=== PATIENT | male | born 1995 | race Caucasian/White ===

== ENCOUNTER 2017-06-19 12:12 | Emergency (ER) | payer BC ==
--- NOTE | 2017-06-19 12:28 | EDM.PDOC ---
ED HPI GENERAL MEDICAL PROBLEM - General Chief Complaint: Skin Complaint Stated Complaint: RASH TO THE BACK OF LEFT LEG Time Seen by Provider: 06/19/17 12:19 Source of Information: Reports: Patient History Limitations: Reports: No Limitations - History of Present Illness INITIAL COMMENTS - FREE TEXT/NARRATIVE: HISTORY AND PHYSICAL: History of present illness: Patient is a 21-year-old male who presents to the emergency room with complaints of "rash" to the left posterior thigh. Friday morning he thought he had a fever and had some chills but this resolved within the afternoon. Had felt fine until when he noticed some swelling, warmth and redness to the left posterior thigh. He denies any fever, chills, calf pain, numbness or tingling to the affected extremity. No history of MRSA or skin infections. Does not shave in that area. Has had no recent injury or trauma to the affected extremity. No groin pain, redness, swelling. No difficulty urinating or with bowels. Review of systems: As per history of present illness and below otherwise all systems reviewed and negative. Past medical history: As per history of present illness and as reviewed below otherwise noncontributory. Surgical history: As per history of present illness and as reviewed below otherwise noncontributory. Social history: No reported history of drug or alcohol abuse. Family history: As per history of present illness and as reviewed below otherwise noncontributory. Physical exam: General: Well-developed and well-nourished 21-year-old male. Alert and oriented. Nontoxic appearing and in no acute distress. HEENT: Atraumatic, normocephalic, pupils reactive, negative for conjunctival pallor or scleral icterus, mucous membranes moist, throat clear, neck supple, nontender, trachea midline. Lungs: Clear to auscultation, breath sounds equal bilaterally, chest nontender. Heart: S1S2, regular rate and rhythm Abdomen: Soft, nondistended, nontender. Negative for masses or hepatosplenomegaly. Negative for costovertebral tenderness. Pelvis: Stable nontender. Genitourinary: Deferred. Rectal: Deferred. Extremities: Atraumatic, negative for cords or calf pain. Neurovascular unremarkable. Skin: Intact, warm, dry. Localized area of erythema to the left posterior thigh , approximately size of palm. Appears consistent with cellulitis. Neuro: Awake, alert, oriented. Cranial nerves II through XII unremarkable. Cerebellum unremarkable. Motor and sensory unremarkable throughout. Exam nonfocal. Vital signs have been reviewed by me, within normal limits. The cellulitis appears to be very localized and will be well managed with oral antibiotics. Discussed lab work, he declined at this time. We did discuss monitoring for signs of improvement. Nursing staff has outlined the border with a marker. Encourage the patient to closely monitor this. Signs and symptoms were reviewed with the patient in which she should return to the emergency room. We did discuss that he does not improve with oral antibiotics he would then need IV antibiotics and possible admission. He voices understanding and is agreeable to plan of care. He denies any questions at this time. Diagnostics: [] Therapeutics: [] Impression: Cellulitis Plan: 1. Please take the antibiotic as directed. Keflex 1 tab 3 times daily, with meals. This is available for pickup at [facility] 2. Continue to monitor the cellulitis site. As we discussed, if this site gets worse, developed fever, chills or any other new/worsening symptoms please return to the emergency room. 3. Tylenol and/or ibuprofen as needed for pain management. 4. Follow-up with your primary caregiver in the next 1-2 days. Return to the ED as needed and as discussed. Definitive disposition and diagnosis as appropriate pending reevaluation and review of above. Duration: Day(s): - Related Data Allergies Allergy/AdvReac Type Severity Reaction Status Date / Time medication for pink eye Allergy Cannot Uncoded 06/19/17 12:29 Remember Home Meds: Home Meds Cephalexin [Keflex] 500 mg PO TID 10 Days #30 capsule 06/19/17 [Rx] Past Medical History HEENT History: Reports: Impaired Vision, Other (See Below) Other HEENT History: boils in sinus area Psychiatric History: Reports: None Dermatologic History: Reports: Other (See Below) Other Dermatologic History: boils - Infectious Disease History Infectious Disease History: Reports: Chicken Pox - Past Surgical History Dermatological Surgical History: Reports: Other (See Below) Social & Family History - Family History Family Medical History: Noncontributory Neurological: Reports: Cerebral Aneurysms, CVA Endocrine/Metabolic: Reports: Diabetes, type II - Tobacco Use Smoking Status *Q: Never Smoker Second Hand Smoke Exposure: No - Caffeine Use Caffeine Use: Reports: Soda - Recreational Drug Use Recreational Drug Use: No ED ROS GENERAL - Review of Systems Review Of Systems: ROS reveals no pertinent complaints other than HPI. ED EXAM, SKIN/RASH Exam: See Below (See dictation) Course - Vital Signs Last Recorded V/S: Last Vital Signs Temp 98.3 F 06/19/17 12:27 Pulse 87 06/19/17 12:27 Resp 18 06/19/17 12:27 BP 133/69 06/19/17 12:27 Pulse Ox 96 06/19/17 12:27 - Orders/Labs/Meds Orders: Active Orders 24 hr Category Date Time Status Communication Order [RC] STAT Care 06/19/17 12:35 Ordered Departure - Departure Time of Disposition: 12:37 Disposition: Home, Self-Care 01 Clinical Impression: Cellulitis - Discharge Information Prescriptions: Cephalexin [Keflex] 500 mg PO TID 10 Days #30 capsule Instructions: Cellulitis, Adult, [id number] Referrals: Jluis Rendon MD [Primary Care Provider] - Forms: ED Department Discharge Additional Instructions: My general discharge The following information is given to patients seen in the emergency department who are being discharged to home. This information is to outline your options for follow-up care. We provide all patients seen in our emergency department with a follow-up referral. The need for follow-up, as well as the timing and circumstances, are variable depending upon the specifics of your emergency department visit. If you don't have a primary care physician on staff, we will provide you with a referral. We always advise you to contact your personal physician following an emergency department visit to inform them of the circumstance of the visit and for follow-up with them and/or the need for any referrals to a consulting specialist. The emergency department will also refer you to a specialist when appropriate. This referral assures that you have the opportunity for follow-up care with a specialist. All of these measure are taken in an effort to provide you with optimal care, which includes your follow-up. Under all circumstances we always encourage you to contact your private physician who remains a resource for coordinating your care. When calling for follow-up care, please make the office aware that this follow-up is from your recent emergency room visit. If for any reason you are refused follow-up, please contact the [facility] Emergency Department at and asked to speak to the emergency department charge nurse. [facility] [address] [place] [id number] 1. Please take the antibiotic as directed. Keflex 1 tab 3 times daily, with meals. This is available for pickup at [facility] 2. Continue to monitor the cellulitis site. As we discussed, if this site gets worse, developed fever, chills or any other new/worsening symptoms please return to the emergency room. 3. Tylenol and/or ibuprofen as needed for pain management. 4. Follow-up with your primary caregiver in the next 1-2 days. Return to the ED as needed and as discussed. - My Orders Last 24 Hours: My Active Orders 06/19/17 12:35 Communication Order [RC] STAT - Assessment/Plan Last 24 Hours: My Active Orders 06/19/17 12:35 Communication Order [RC] STAT
[2017-06-19 12:58] VITALS: BP 128/76
== END 2017-06-19 12:55 | disposition home or self-care (01) ==
LOC: MW.ED 12:12
DX: L03.116 Cellulitis of left lower limb (principal)
CPT/HCPCS: 99282; 99283

== ENCOUNTER 2017-12-12 14:58 | Emergency (ER) | payer BC ==
[2017-12-12 15:18] VITALS: BP 138/96
--- NOTE | 2017-12-12 15:29 | EDM.PDOC ---
ED HPI GENERAL MEDICAL PROBLEM - General Chief Complaint: Lower Extremity Injury/Pain Stated Complaint: LT ANKLE HURTS Time Seen by Provider: 12/12/17 15:05 - History of Present Illness INITIAL COMMENTS - FREE TEXT/NARRATIVE: HISTORY AND PHYSICAL: History of present illness: The patient is a 22-year-old male with no stated medical problems who presents complaints of pain to his left ankle that has been ongoing for the last week. The patient says he does exceptionally large amount of walking with his job at [employer] and does climbing and moving and doesn't recall any specific injury but has noticed increasing amount of pain at his ankle bilaterally. He said he was on his treadmill doing some sprints and he may have landed funny but doesn't recall any specific sharpshooting pain but more of a gradual onset. He did not fall bumper hit the area and has no distal toe or foot pain no heel pain and no proximal leg knee or hip pain. He has not taken any [id number] meds or pain. On my interview and evaluation the patient is wearing gym shoes which are very worn and old and the patient says there are over 6 months old even closer to a year. Review of systems: As per history of present illness and below otherwise all systems reviewed and negative. Past medical history: As per history of present illness and as reviewed below otherwise noncontributory. Surgical history: As per history of present illness and as reviewed below otherwise noncontributory. Social history: No reported history of drug or alcohol abuse. Family history: As per history of present illness and as reviewed below otherwise noncontributory. Physical exam: General: Well-developed well-nourished man who is mildly overweight and nontoxic. HEENT related to the ED without distress. Vital signs are noted by me. HEENT: Atraumatic, normocephalic, negative for conjunctival pallor or scleral icterus, mucous membranes moist, throat clear, neck supple, nontender, trachea midline. Lungs: Clear to auscultation, breath sounds equal bilaterally, chest nontender. Heart: S1S2, regular rate and rhythm no overt murmurs Abdomen: Soft, nondistended, nontender. NABS Pelvis: Deferred Genitourinary: Deferred. Rectal: Deferred. Extremities: Atraumatic, with full range of motion of all extremities without defects or deficits. At the left ankle there is some tenderness with palpation of the ankle circumferentially but there are no palpable bony deformities no ecchymosis no erythema and no warmth and really no soft tissue swelling. The patient is very flat-footed and there is barely any arch in his foot. There is no heel tenderness with palpation and no distal metatarsal or toe tenderness defects or deformities. Neurovascular is intact. The proximal tib-fib knee and hip are also intact without tenderness. No joint itself seems stable but is difficult to fully evaluate due to the patient's discomfort. The legs are negative for cords or calf pain. Neurovascular unremarkable. Neuro: Awake, alert, oriented. Cranial nerves II through XII unremarkable. Cerebellum unremarkable. Motor and sensory unremarkable throughout. Exam nonfocal. Diagnostics: X-ray of the left ankle Therapeutics: Patient defers pain medication After my initial evaluation patient did ask for something for pain but does not want a shot. I will give him Motrin 800 mg po Cam boot Patient is aware of testing results and need for follow-up with ankle-copy center specialist. I given him referrals. I've advised using the cam boot with limited weightbearing and using [id number] nonsteroidals. Impression: Left ankle pain Definitive disposition and diagnosis as appropriate pending reevaluation and review of above. Left Ankle Pain Score (Numeric/FACES): 4 - Related Data Allergies Allergy/AdvReac Type Severity Reaction Status Date / Time medication for pink eye Allergy Burning Uncoded 12/12/17 15:19 Home Meds: Home Meds . [No Known Home Meds] 12/12/17 [History] Past Medical History HEENT History: Reports: Impaired Vision, Other (See Below) Other HEENT History: boils in sinus area Psychiatric History: Reports: None Dermatologic History: Reports: Other (See Below) Other Dermatologic History: boils - Infectious Disease History Infectious Disease History: Reports: Chicken Pox - Past Surgical History Dermatological Surgical History: Reports: Other (See Below) Social & Family History - Family History Family Medical History: Noncontributory Neurological: Reports: Cerebral Aneurysms, CVA Endocrine/Metabolic: Reports: Diabetes, type II - Caffeine Use Caffeine Use: Reports: Soda Review of Systems - Review of Systems Review Of Systems: ROS reveals no pertinent complaints other than HPI. ED EXAM, GENERAL - Physical Exam Exam: See Below (See dictation) Course - Vital Signs Last Recorded V/S: Last Vital Signs Temp 36.8 C 12/12/17 15:11 Pulse 75 12/12/17 15:11 Resp 18 12/12/17 15:11 BP 138/96 H 12/12/17 15:11 Pulse Ox 96 12/12/17 15:11 - Orders/Labs/Meds Orders: Active Orders 24 hr Category Date Time Status Ankle Min 3V Lt [CR] Stat Exams 12/12/17 15:24 Taken DME for Discharge [COMM] Stat Oth 12/12/17 16:17 Ordered Meds: Medications Discontinued Medications Generic Name Dose Route Start Last Admin Trade Name Velia PRN Reason Stop Dose Admin Ibuprofen 800 mg 12/12/17 15:58 12/12/17 16:10 Motrin PO 12/12/17 15:59 800 mg ONETIME ONE Administration Departure - Departure Time of Disposition: 16:18 Disposition: Home, Self-Care 01 Condition: Good Clinical Impression: Left ankle pain Qualifiers: Chronicity: unspecified Qualified Code(s): M25.572 - Pain in left ankle and joints of left foot - Discharge Information Referrals: PCP,None [Primary Care Provider] - Forms: ED Department Discharge Additional Instructions: The following information is given to patients seen in the emergency department who are being discharged to home. This information is to outline your options for follow-up care. We provide all patients seen in our emergency department with a follow-up referral. The need for follow-up, as well as the timing and circumstances, are variable depending upon the specifics of your emergency department visit. If you don't have a primary care physician on staff, we will provide you with a referral. We always advise you to contact your personal physician following an emergency department visit to inform them of the circumstance of the visit and for follow-up with them and/or the need for any referrals to a consulting specialist. The emergency department will also refer you to a specialist when appropriate. This referral assures that you have the opportunity for followup care with a specialist. All of these measure are taken in an effort to provide you with optimal care, which includes your followup. Under all circumstances we always encourage you to contact your private physician who remains a resource for coordinating your care. When calling for followup care, please make the office aware that this follow-up is from your recent emergency room visit. If for any reason you are refused follow-up, please contact the [facility] emergency department at and ask to speak to the emergency department charge nurse. Specialty clinic- Podiatry [address], [place] [address] Fax: [phone] Dr Samira Jaffe [address] [facility] [address] [place] [address] [facility] Specialty Care--Orthopedic clinic Professional Building [address] [place] [address] [address] [place] [address] Please call and schedule follow-up appointments for next week. Wear the cam boot you have been given and try to walk more slowly and limit ambulation as much as possible. Please ice and elevate when you can and use [id number] ibuprofen. Return to ER as needed and as discussed - My Orders Last 24 Hours: My Active Orders 12/12/17 15:24 Ankle Min 3V Lt [CR] Stat 12/12/17 16:17 DME for Discharge [COMM] Stat - Assessment/Plan Last 24 Hours: My Active Orders 12/12/17 15:24 Ankle Min 3V Lt [CR] Stat 12/12/17 16:17 DME for Discharge [COMM] Stat
[2017-12-12] MEDS ORDERED: Ibuprofen 800 MG Tab PO ONE (15:58)
--- NOTE | 2017-12-15 10:39 | CR ---
EXAM DATE: 12/12/17 PATIENT'S AGE: 22 Patient: CARTER VELASQUEZ Facility: [place], [place] Site . Site : 1995 Study: XRay Extremity Left ankle [id number]/31/2018 3:54:46 PM Ordering Physician: Stephanie Martin Final Report: INDICATION: Ankle Pain, no known injury TECHNIQUE: Ankle radiograph 3 views left COMPARISON: None FINDINGS: Bone: No acute fractures or aggressive bone lesions are identified. Joint: The ankle mortise joint and the visualized hindfoot joints are unremarkable in appearance. No significant ankle effusion is seen. Soft tissue: The Kager fat pad and the Achilles` tendon is normal in appearance. No radiopaque foreign bodies are seen. IMPRESSION: 1. No acute osseous injuries or abnormalities are noted. Dictated by: Mckinley Miller MD @ 12/12/2017 16:03:09 (Electronic Signature) Report Signed by Proxy. ARELIS
== END 2017-12-12 17:00 | disposition home or self-care (01) ==
LOC: MW.ED 14:58
DX: M25.572 Pain in left ankle and joints of left foot (principal); Z88.8 Allergy status to other drugs, medicaments and biological substances
CPT/HCPCS: 73610; 99283; A9270

== ENCOUNTER 2018-09-26 20:14 | Emergency (ER) | payer BC ==
--- NOTE | 2018-09-26 20:20 | EDM.PDOC ---
ED HPI GENERAL MEDICAL PROBLEM - General Chief Complaint: Skin Complaint Stated Complaint: BOIL ON INSIDE OF NOSE Time Seen by Provider: 09/26/18 20:17 Source of Information: Reports: Patient History Limitations: Reports: No Limitations - History of Present Illness INITIAL COMMENTS - FREE TEXT/NARRATIVE: HISTORY AND PHYSICAL: History of present illness: Patient is a 23-year-old male who presents to the emergency room with complaints of an "infection" to the inside of his right nostril. He states he has had these in the past and has used Bactroban ointment which seems to help "clear them up". He states he noticed some tenderness to the inside of his right nostril and felt that it was getting larger in size. He denies any fever, chills, injury or trauma. Review of systems: As per history of present illness and below otherwise all systems reviewed and negative. Past medical history: As per history of present illness and as reviewed below otherwise noncontributory. Surgical history: As per history of present illness and as reviewed below otherwise noncontributory. Social history: See social history for further information Family history: As per history of present illness and as reviewed below otherwise noncontributory. Physical exam: General: Well-developed and well-nourished 23-year-old male. Alert and oriented. Nontoxic appearing and in no acute distress. HEENT: Atraumatic, normocephalic, pupils equal and reactive bilaterally, negative for conjunctival pallor or scleral icterus, mucous membranes moist, folliculitis noted to the right lateral near with tenderness to palpation, nares are patent bilaterally, TMs normal bilaterally, throat clear, neck supple , nontender, trachea midline. No drooling or trismus noted. No meningeal signs. No hot potato voice noted. Lungs: Clear to auscultation, breath sounds equal bilaterally, chest nontender. Heart: S1S2, regular rate and rhythm without overt murmur Skin: SEE HEENT. Intact, warm, dry. No lesions or rashes noted. Extremities: Atraumatic, moves all extremities per self without difficulty or deficits. Neurovascular unremarkable. Neuro: Awake, alert, oriented. Cranial nerves II through XII unremarkable. Cerebellum unremarkable. Motor and sensory unremarkable throughout. Exam nonfocal. Notes: Medication education was reviewed and discussed. Supportive care measures were reviewed and discussed. Voices understanding and is agreeable to plan of care. Denies any further questions or concerns at this time. Diagnostics: None Therapeutics: None Prescription: Bactroban 2% ointment Impression: Folliculitis Plan: 1. Please use the medication as prescribed. Warm gentle heat packs as we discussed. 2. Follow-up with your primary care provider as we discussed. Return to the ED as needed and as discussed. Definitive disposition and diagnosis as appropriate pending reevaluation and review of above. Right Nare Pain Score (Numeric/FACES): 4 - Related Data Allergies Allergy/AdvReac Type Severity Reaction Status Date / Time latex Allergy Rash Verified 09/26/18 20:29 medication for pink eye Allergy Burning Uncoded 09/26/18 20:29 Home Meds: Home Meds . [No Known Home Meds] 09/26/18 [History] Past Medical History HEENT History: Reports: Impaired Vision, Other (See Below) Other HEENT History: boils in sinus area Psychiatric History: Reports: None Dermatologic History: Reports: Other (See Below) Other Dermatologic History: boils - Infectious Disease History Infectious Disease History: Reports: Chicken Pox - Past Surgical History Dermatological Surgical History: Reports: Other (See Below) Social & Family History - Family History Family Medical History: Noncontributory Neurological: Reports: Cerebral Aneurysms, CVA Endocrine/Metabolic: Reports: Diabetes, type II - Caffeine Use Caffeine Use: Reports: Soda Caffeine Use Comment: 6- 24 mL btls/day ED ROS GENERAL - Review of Systems Review Of Systems: ROS reveals no pertinent complaints other than HPI. ED EXAM, SKIN/RASH Exam: See Below (See dictation) Course - Vital Signs Last Recorded V/S: Last Vital Signs Temp 97.0 F 09/26/18 20:26 Pulse 77 09/26/18 20:26 Resp 18 09/26/18 20:26 BP 144/87 H 09/26/18 20:26 Pulse Ox 96 09/26/18 20:26 Departure - Departure Time of Disposition: 20:34 Disposition: Home, Self-Care 01 Clinical Impression: Folliculitis - Discharge Information Instructions: Folliculitis Referrals: PCP,None [Primary Care Provider] - Forms: ED Department Discharge Additional Instructions: The following information is given to patients seen in the emergency department who are being discharged to home. This information is to outline your options for follow-up care. We provide all patients seen in our emergency department with a follow-up referral. The need for follow-up, as well as the timing and circumstances, are variable depending upon the specifics of your emergency department visit. If you don't have a primary care physician on staff, we will provide you with a referral. We always advise you to contact your personal physician following an emergency department visit to inform them of the circumstance of the visit and for follow-up with them and/or the need for any referrals to a consulting specialist. The emergency department will also refer you to a specialist when appropriate. This referral assures that you have the opportunity for follow-up care with a specialist. All of these measure are taken in an effort to provide you with optimal care, which includes your follow-up. Under all circumstances we always encourage you to contact your private physician who remains a resource for coordinating your care. When calling for follow-up care, please make the office aware that this follow-up is from your recent emergency room visit. If for any reason you are refused follow-up, please contact the [facility] Emergency Department at and asked to speak to the emergency department charge nurse. [facility] [address] [place] [address] [id number] [address] [id number] 1. Please use the medication as prescribed. Warm gentle heat packs as we discussed. 2. Follow-up with your primary care provider as we discussed. Return to the ED as needed and as discussed.
[2018-09-26 21:06] VITALS: BP 146/92
== END 2018-09-26 20:54 | disposition home or self-care (01) ==
LOC: MW.ED 20:14
DX: L73.9 Follicular disorder, unspecified (principal); Z91.040 Latex allergy status
CPT/HCPCS: 99282

== ENCOUNTER 2019-03-04 09:32 | Emergency (ER) | payer BC ==
[2019-03-04] MEDS ORDERED: Sodium Chloride 0.9% 1,000 ML IV ONE (09:45)
--- NOTE | 2019-03-04 09:47 | EDM.PDOC ---
ED HPI GENERAL MEDICAL PROBLEM - General Chief Complaint: Gastrointestinal Problem Stated Complaint: ABD PAIN Time Seen by Provider: 03/04/19 09:42 - History of Present Illness INITIAL COMMENTS - FREE TEXT/NARRATIVE: HISTORY AND PHYSICAL: History of present illness: Patient's 23-year-old white male no significant past medical history presents with concern of diarrhea 5 days with some crampy discomfort he denies fever chills nausea vomiting is been no recent travel he's had no sick contacts. Review of systems: As per history of present illness and below otherwise all systems reviewed and negative. Past medical history: As per history of present illness and as reviewed below otherwise noncontributory. Surgical history: As per history of present illness and as reviewed below otherwise noncontributory. Social history: No reported history of drug or alcohol abuse. Family history: As per history of present illness and as reviewed below otherwise noncontributory. Physical exam: HEENT: Atraumatic, normocephalic, pupils reactive, negative for conjunctival pallor or scleral icterus, mucous membranes moist, throat clear, neck supple, nontender, trachea midline. Lungs: Clear to auscultation, breath sounds equal bilaterally, chest nontender. Heart: S1S2, regular, negative for clicks, rubs, or JVD. Abdomen: Soft, nondistended, nontender. Negative for masses or hepatosplenomegaly. Negative for costovertebral tenderness. Pelvis: Stable nontender. Genitourinary: Deferred. Rectal: Deferred. Extremities: Atraumatic, negative for cords or calf pain. Neurovascular unremarkable. Neuro: Awake, alert, oriented. Cranial nerves II through XII unremarkable. Cerebellum unremarkable. Motor and sensory unremarkable throughout. Exam nonfocal. Diagnostics: CBC CMP UA stool for C&S O&P and C. difficile Therapeutics: Saline 1 L bolus Impression: #1 diarrhea Definitive disposition and diagnosis as appropriate pending reevaluation and review of above. Abdomen Pain Score (Numeric/FACES): 3 - Related Data Allergies Allergy/AdvReac Type Severity Reaction Status Date / Time latex Allergy Rash Verified 03/04/19 09:39 medication for pink eye Allergy Burning Uncoded 03/04/19 09:39 Home Meds: Home Meds . [No Known Home Meds] 09/26/18 [History] Past Medical History HEENT History: Reports: Impaired Vision, Other (See Below) Other HEENT History: boils in sinus area Cardiovascular History: Reports: None Psychiatric History: Reports: None Dermatologic History: Reports: Other (See Below) Other Dermatologic History: boils - Infectious Disease History Infectious Disease History: Reports: None - Past Surgical History Dermatological Surgical History: Reports: Other (See Below) Social & Family History - Family History Family Medical History: Noncontributory Neurological: Reports: Cerebral Aneurysms, CVA Endocrine/Metabolic: Reports: Diabetes, type II - Tobacco Use Smoking Status *Q: Never Smoker - Caffeine Use Caffeine Use: Reports: Soda Caffeine Use Comment: 6- 24 mL btls/day - Recreational Drug Use Recreational Drug Use: No ED ROS GENERAL - Review of Systems Review Of Systems: Comprehensive ROS is negative, except as noted in HPI. ED EXAM, GENERAL - Physical Exam Exam: See Below (dictation) Course - Vital Signs Last Recorded V/S: Last Vital Signs Temp 36.3 C 03/04/19 09:39 Pulse 93 03/04/19 09:39 Resp 17 03/04/19 09:39 BP 165/75 H 03/04/19 09:39 Pulse Ox 97 03/04/19 09:39 - Orders/Labs/Meds Orders: Active Orders 24 hr Category Date Time Status CULTURE STOOL + CAMPY+SHIGATOX [RM] Stat Lab 03/04/19 09:46 Results Labs: Laboratory Tests 03/04/19 03/04/19 03/04/19 Range/Units 09:46 10:03 10:03 WBC 8.23 (4.0-11.0) K/uL RBC 5.42 (4.50-5.90) M/uL Hgb 15.0 (13.0-17.0) g/dL Hct 43.6 (38.0-50.0) % MCV 80.4 (80.0-98.0) fL MCH 27.7 (27.0-32.0) pg MCHC 34.4 (31.0-37.0) g/dL RDW Std Deviation 36.7 (28.0-62.0) fl RDW Coeff of Smita 13 (11.0-15.0) % Plt Count 374 (150-400) K/uL MPV 9.90 (7.40-12.00) fL Neut % (Auto) 59.9 (48.0-80.0) % Lymph % (Auto) 28.6 (16.0-40.0) % [place] % (Auto) 8.9 (0.0-15.0) % Eos % (Auto) 2.2 (0.0-7.0) % Baso % (Auto) 0.4 (0.0-1.5) % Neut # (Auto) 4.9 (1.4-5.7) K/uL Lymph # (Auto) 2.4 (0.6-2.4) K/uL [place] # (Auto) 0.7 (0.0-0.8) K/uL Eos # (Auto) 0.2 (0.0-0.7) K/uL Baso # (Auto) 0.0 (0.0-0.1) K/uL Sodium 136 (136-148) mmol/L Potassium 4.2 (3.5-5.1) mmol/L Chloride 101 (98-107) mmol/L Carbon Dioxide 26.5 (21.0-32.0) mmol/L BUN 12 (7.0-18.0) mg/dL Creatinine 0.8 (0.8-1.3) mg/dL Est Cr Clr Drug Dosing 185.66 mL/min Estimated GFR (MDRD) > 60.0 ml/min Glucose 86 (74-106) mg/dL Calcium 9.1 (8.5-10.1) mg/dL Total Bilirubin 0.3 (0.2-1.0) mg/dL AST 21 (15-37) IU/L ALT 39 (14-63) IU/L Alkaline Phosphatase 60 (46-116) U/L Total Protein 8.6 H (6.4-8.2) g/dL Albumin 4.0 (3.4-5.0) g/dL Globulin 4.6 H (2.6-4.0) g/dL Albumin/Globulin Ratio 0.9 (0.9-1.6) Urine Color YELLOW Urine Appearance CLEAR Urine pH 6.0 (5.0-8.0) Ur Specific [place] 1.020 (1.001-1.035) Urine Protein NEGATIVE (NEGATIVE) mg/dL Urine Glucose (UA) NEGATIVE (NEGATIVE) mg/dL Urine Ketones NEGATIVE (NEGATIVE) mg/dL Urine Occult Blood NEGATIVE (NEGATIVE) Urine Nitrite NEGATIVE (NEGATIVE) Urine Bilirubin NEGATIVE (NEGATIVE) Urine Urobilinogen 0.2 (<2.0) EU/dL Ur Leukocyte Esterase NEGATIVE (NEGATIVE) Meds: Medications Discontinued Medications Generic Name Dose Route Start Last Admin Trade Name Velia PRN Reason Stop Dose Admin Sodium Chloride 1,000 mls @ 999 mls/hr 03/04/19 09:45 03/04/19 09:59 Normal Saline IV 03/04/19 10:45 999 mls/hr STAT ONE Administration Departure - Departure Time of Disposition: 12:41 Disposition: Home, Self-Care 01 Condition: Good Clinical Impression: Diarrhea - Discharge Information Referrals: Boris Gonzalez MD [Primary Care Provider] - Forms: ED Department Discharge Additional Instructions: The following information is given to patients seen in the emergency department who are being discharged to home. This information is to outline your options for follow-up care. We provide all patients seen in our emergency department with a follow-up referral. The need for follow-up, as well as the timing and circumstances, are variable depending upon the specifics of your emergency department visit. If you don't have a primary care physician on staff, we will provide you with a referral. We always advise you to contact your personal physician following an emergency department visit to inform them of the circumstance of the visit and for follow-up with them and/or the need for any referrals to a consulting specialist. The emergency department will also refer you to a specialist when appropriate. This referral assures that you have the opportunity for followup care with a specialist. All of these measure are taken in an effort to provide you with optimal care, which includes your followup. Under all circumstances we always encourage you to contact your private physician who remains a resource for coordinating your care. When calling for followup care, please make the office aware that this follow-up is from your recent emergency room visit. If for any reason you are refused follow-up, please contact the [facility] emergency department at and asked to speak to the emergency department charge nurse. Avoid dairy products 72 hours push fluids clear liquids as directed follow private medical doctor as needed discussed and return as needed as discussed - My Orders Last 24 Hours: My Active Orders 03/04/19 09:46 CULTURE STOOL + CAMPY+SHIGATOX [RM] Stat - Assessment/Plan Last 24 Hours: My Active Orders 03/04/19 09:46 CULTURE STOOL + CAMPY+SHIGATOX [RM] Stat
[2019-03-04 10:55] LABS: BLOOD UREA NITROGEN,BUN 12 mg/dL (7.0-18.0); CARBON DIOXIDE,CO2 26.5 mmol/L (21.0-32.0); CHLORIDE,CL 101 mmol/L (98-107); GLUCOSE RANDOM 86 mg/dL (74-106); POTASSIUM,K 4.2 mmol/L (3.5-5.1); SODIUM,NA 136 mmol/L (136-148)
[2019-03-04 12:59] VITALS: BP 145/87; PULSE 72
== END 2019-03-04 12:45 | disposition home or self-care (01) ==
LOC: MW.ED 09:32
DX: R19.7 Diarrhea, unspecified (principal); Z91.040 Latex allergy status; Z88.8 Allergy status to other drugs, medicaments and biological substances
CPT/HCPCS: 36415; 80053; 81003; 85025; 87046; 87324; 87899; 99284; J7040

== ENCOUNTER 2020-03-23 04:48 | Emergency (ER) | payer OTHER, BC ==
--- NOTE | 2020-03-23 05:38 | CR ---
Indication: Knee pain Technique: Three views Comparison: None Findings: Bones: Alignment is normal. No fractures or bone lesions. Joint spaces: Unremarkable. Soft tissues: Mild anterior soft tissue swelling. Dictated by Steffen Marquez MD @ Mar 23 2020 5:35AM Signed by Dr. Steffen Marquez @ Mar 23 2020 5:37AM
--- NOTE | 2020-03-23 05:53 | CR ---
Indication: Pain Technique: Three views Comparison: None Findings: Bones: Alignment is normal. No fractures or bone lesions. Joint spaces: Unremarkable. Soft tissues: Moderate soft tissue swelling Dictated by Steffen Marquez MD @ Mar 23 2020 5:50AM Signed by Dr. Steffen Marquez @ Mar 23 2020 5:52AM
--- NOTE | 2020-03-23 05:59 | EDM.PDOC ---
ED HPI GENERAL MEDICAL PROBLEM - General Chief Complaint: Lower Extremity Injury/Pain Stated Complaint: RT ANKLE HURTS Time Seen by Provider: 03/23/20 05:53 Source of Information: Reports: Patient History Limitations: Reports: No Limitations - History of Present Illness INITIAL COMMENTS - FREE TEXT/NARRATIVE: 24-year-old male presents with right ankle pain after spraining his ankle getting out of his truck just prior to arrival. He landed on his left knee and complains of left knee pain. His pain to his right ankle is constant, exacerbated with range of motion and weightbearing, constant, nonradiating, sharp mild in severity. ROS: A 10-point review of systems, other than pertinent positives and negatives as stated per HPI, is otherwise negative Past medical history: No additional pertinent history Past Surgical history: No additional pertinent history Social history: No additional pertinent history Family history: No additional pertinent history PHYSICAL EXAM General: AOx4, GCS = 15, No distress HEENT: dry mucous membrane Neck: supple, no meningismus, no Kernig or Brudzinski Cardiac: S1S2 RRR Respiratory: CTAB, no crackles or rales, no wheezing Abdomen: Soft, nontender, no rebound or guarding, nondistended, no pulsatile mass. Back: nontender Musculoskeletal: NVI distally, mild tenderness to left patella and right ankle medial malleolus. No deformity Neuro: No focal deficits, CN 2 - 12 WNL. right ankle Pain Score (Numeric/FACES): 6 - Related Data Allergies Allergy/AdvReac Type Severity Reaction Status Date / Time latex Allergy Rash Verified 03/23/20 04:57 medication for pink eye Allergy Burning Uncoded 03/23/20 04:57 Home Meds: Home Meds Naproxen [Naprosyn] 500 mg PO Q12HR #30 tab 03/23/20 [Rx] Past Medical History HEENT History: Reports: Impaired Vision, Other (See Below) Other HEENT History: boils in sinus area Cardiovascular History: Reports: None Respiratory History: Reports: None Gastrointestinal History: Reports: None Genitourinary History: Reports: None Musculoskeletal History: Reports: None Neurological History: Reports: None Psychiatric History: Reports: None Endocrine/Metabolic History: Reports: None Insulin Pump Model and Operations Welder: None Hematologic History: Reports: None Immunologic History: Reports: None Oncologic (Cancer) History: Reports: None Dermatologic History: Reports: Other (See Below) Other Dermatologic History: boils - Infectious Disease History Infectious Disease History: Reports: Chicken Pox - Past Surgical History Head Surgeries/Procedures: Reports: None Dermatological Surgical History: Reports: Other (See Below) Social & Family History - Family History Family Medical History: No Pertinent Family History Neurological: Reports: Cerebral Aneurysms, CVA Endocrine/Metabolic: Reports: Diabetes, type II - Tobacco Use Tobacco Use Status *Q: Never Tobacco User - Caffeine Use Caffeine Use: Reports: Soda Caffeine Use Comment: 6- 24 mL btls/day - Recreational Drug Use Recreational Drug Use: No Review of Systems - Review of Systems Review Of Systems: See Below (see dictation) ED EXAM, GENERAL - Physical Exam Exam: See Below (see dictation) ED TRAUMA EXTREMITY PROCEDURES - Splinting Right Lower Extremity Splint Site: right ankle Pre-Procedure NV Status: Normal Post-Procedure NV Status: Normal Splint Material: Air Splint Applied & Form Fitted By: Nurse Provider Post-Splint Application NV Check: NV Status Normal, Good Position Complications: Yes Course - Vital Signs Last Recorded V/S: Last Vital Signs Temp 97.6 F 03/23/20 04:58 Pulse 78 03/23/20 04:58 Resp 18 03/23/20 04:58 BP 134/83 03/23/20 04:58 Pulse Ox 98 03/23/20 04:58 - Orders/Labs/Meds Orders: Active Orders 24 hr Category Date Time Status Ankle Min 3V Rt [CR] Stat Exams 03/23/20 04:55 Taken - Re-Assessments/Exams Free Text/Narrative Re-Assessment/Exam: 03/23/20 05:53 After a strapping the left knee and there is splinting for the right ankle in the ER, the patient improved and is currently stable for discharge. I performed a repeat exam and did not appreciate new abnormal findings. Patient exhibits normal vital signs. I advised the patient to return to the ER for reevaluation if symptoms worsened, including fever, worsening pain, or any other worrisome symptoms. I instructed the patient to follow up with their PCP within 2-3 days. MEDICAL DECISION MAKING: I reviewed the patients past medical records, lab and radiographic findings. I discussed the case with the patient. My differential diagnosis included: Fracture, dislocation, ankle sprain. X-ray did not reveal any fracture to the left knee and the right ankle. He had no tenderness to the right forefoot or midfoot, I do not suspect need for foot x-ray. He had no tenderness to the right proximal fibula, I do not suspect [place]uve fracture. Departure - Departure Time of Disposition: 06:01 Disposition: Home, Self-Care 01 Condition: Good Clinical Impression: Right ankle sprain, Contusion of left knee - Discharge Information *PRESCRIPTION DRUG MONITORING PROGRAM REVIEWED*: Not Applicable *COPY OF PRESCRIPTION DRUG MONITORING REPORT IN PATIENT YASH: Not Applicable Prescriptions: Naproxen [Naprosyn] 500 mg PO Q12HR #30 tab Instructions: Ankle Sprain, Cast or Splint Care, Adult, [id number], Contusion, [id number], How to Use Cold Therapy, [id number] Referrals: PCP,None [Primary Care Provider] - Additional Instructions: The need for follow-up, as well as the timing and circumstances, are variable depending upon the specifics of your emergency department visit. If you don't have a primary care physician on staff, we will provide you with a referral. We always advise you to contact your personal physician following an emergency department visit to inform them of the circumstance of the visit and for follow-up with them and/or the need for any referrals to a consulting specialist. The emergency department will also refer you to a specialist when appropriate. This referral assures that you have the opportunity for follow-up care with a specialist. All of these measure are taken in an effort to provide you with optimal care, which includes your follow-up. Under all circumstances we always encourage you to contact your private physician who remains a resource for coordinating your care. When calling for follow-up care, please make the office aware that this follow-up is from your recent emergency room visit. If for any reason you are refused follow-up, please contact the [facility] Emergency Department at and asked to speak to the emergency department charge nurse. If you do not have a primary care doctor, please follow up with the clinics below within 3-[address] [facility] - Primary Care [address] [place] [id number] [address] Sepsis Event Note (ED) - Evaluation Sepsis Screening Result: No Definite Risk - Focused Exam Vital Signs: Vital Signs Temp Pulse Resp BP Pulse Ox 03/23/20 04:58 97.6 F 78 18 134/83 98 - My Orders Last 24 Hours: My Active Orders 03/23/20 04:55 Ankle Min 3V Rt [CR] Stat - Assessment/Plan Last 24 Hours: My Active Orders 03/23/20 04:55 Ankle Min 3V Rt [CR] Stat
[2020-03-23 06:14] VITALS: BP 132/75; PULSE 75
== END 2020-03-23 06:10 | disposition home or self-care (01) ==
LOC: MW.ED 04:48
DX: S93.401A Sprain of unspecified ligament of right ankle, initial encounter (principal); S80.02XA Contusion of left knee, initial encounter; Z91.040 Latex allergy status; Z88.8 Allergy status to other drugs, medicaments and biological substances; W17.89XA Other fall from one level to another, initial encounter
CPT/HCPCS: 29515; 73562-26-LT; 73562-LT; 73610-26-RT; 73610-RT; 99283; 99283-25

== ENCOUNTER 2020-11-30 15:27 | Emergency (ER) | payer BC ==
[2020-11-30 16:53] VITALS: BP 142/81; PULSE 79
[2020-11-30] MEDS ORDERED: Ibuprofen 600 MG Tab PO ONE (19:46)
--- NOTE | 2020-11-30 19:50 | EDM.PDOC ---
ED HPI GENERAL MEDICAL PROBLEM - General Chief Complaint: Lower Extremity Injury/Pain Stated Complaint: RIGHT FOOT PAIN Time Seen by Provider: 11/30/20 19:34 - History of Present Illness INITIAL COMMENTS - FREE TEXT/NARRATIVE: HISTORY AND PHYSICAL: History of present illness: Is a 25-year-old gentleman who presents ER today complaining of pain to the distal lateral aspect of his right foot that started earlier today. Patient denies any known trauma or injury to his foot. Patient denies any excessive use. Patient denies any recent falls. Patient denies any recent fevers, shakes, chills, nausea, vomiting, diarrhea. Review of systems: As per history of present illness and below otherwise all systems reviewed and negative. Past medical history: As per history of present illness and as reviewed below otherwise nonc ontributory. Surgical history: As per history of present illness and as reviewed below otherwise noncontributory. Social history: No reported history of drug abuse. Family history: As per history of present illness and as reviewed below otherwise noncontributory. Physical exam: This patient was seen and evaluated during the 2019 SARS-CoV-2 novel coronavirus pandemic period. Community viral transmission is ongoing at time of this encounter and the emergency department is operating under pandemic response procedures. Constitutional: Patient is oriented to person, place, and time. Appears well- developed and well-nourished. No distress. HEENT: Moist mucous membranes Head: Normocephalic and atraumatic Eyes: Right eye exhibits no discharge. Left eye exhibits no discharge. No scl eral icterus Neck: Normal range of motion. No tracheal deviation present. Cardiovascular: Normal rate and regular rhythm. Pulmonary: Effort normal, no respiratory distress. Abdominal: No distention Musculoskeletal: Normal range of motion Neurologic: Alert and oriented to person, place and time. Skin: [place], warm and dry. Psychiatric: Normal mood and affect. Behavior is normal. Judgment and thought content normal. Nursing note and vital signs have been reviewed Patient's ER physical exam significant for tenderness palpation to the lateral aspect of his right foot over the fourth and fifth toes without any evidence of trauma, swelling, ecchymosis. Full range of motion is intact although the patient feels better in a dorsiflexed position with his toes. Patient is neurovascular intact. He has a good distal pulses and good capillary refill. Patient is wearing extremely old shoes that would likely give [place] no support to his foot. Diagnostics: Right foot x-ray: No acute fracture or dislocation. Therapeutics: [] Assessment and plan: 25-year-old presents to the ER today secondary to pain to his right lateral foot. Patient's x-rays are negative. Patient be discharged home with ibuprofen and instructed to try to utilize better footwear, ibuprofen, heat for the neck several days and to baby at with. Definitive disposition and diagnosis as appropriate pending reevaluation and review of above. Right Lower Foot Pain Score (Numeric/FACES): 7 - Related Data Allergies Allergy/AdvReac Type Severity Reaction Status Date / Time latex Allergy Rash Verified 03/23/20 04:57 medication for pink eye Allergy Burning Uncoded 03/23/20 04:57 Home Meds: Home Meds Naproxen [Naprosyn] 500 mg PO Q12HR #30 tab 03/23/20 [Rx] Ibuprofen 600 mg PO Q6HR PRN #30 tablet 11/30/20 [Rx] Past Medical History HEENT History: Reports: Impaired Vision, Other (See Below) Other HEENT History: boils in sinus area Cardiovascular History: Reports: None Respiratory History: Reports: None Gastrointestinal History: Reports: None Genitourinary History: Reports: None Musculoskeletal History: Reports: None Neurological History: Reports: None Psychiatric History: Reports: None Endocrine/Metabolic History: Reports: None Insulin Pump Model and Air Drill Operator: None Hematologic History: Reports: None Immunologic History: Reports: None Oncologic (Cancer) History: Reports: None Dermatologic History: Reports: Other (See Below) Other Dermatologic History: boils - Infectious Disease History Infectious Disease History: Reports: Chicken Pox - Past Surgical History Head Surgeries/Procedures: Reports: None Dermatological Surgical History: Reports: Other (See Below) Social & Family History - Family History Family Medical History: No Pertinent Family History Neurological: Reports: Cerebral Aneurysms, CVA Endocrine/Metabolic: Reports: Diabetes, type II - Tobacco Use Tobacco Use Status *Q: Never Tobacco User - Caffeine Use Caffeine Use: Reports: Energy Drinks Caffeine Use Comment: 6- 24 mL btls/day - Alcohol Use Days Per Week of Alcohol Use: 2 Number of Drinks Per Day: 2 Total Drinks Per Week: 4 - Recreational Drug Use Recreational Drug Use: No Review of Systems - Review of Systems Review Of Systems: See Below ED EXAM, GENERAL - Physical Exam Exam: See Below Course - Vital Signs Last Recorded V/S: Last Vital Signs Temp 97.6 F 11/30/20 16:47 Pulse 79 11/30/20 16:47 Resp 18 11/30/20 16:47 BP 142/81 H 11/30/20 16:47 Pulse Ox 95 11/30/20 16:47 - Orders/Labs/Meds Orders: Active Orders 24 hr Category Date Time Status Foot Comp Min 3V Rt [CR] Stat Exams 11/30/20 18:06 Taken Ibuprofen [Motrin] Med 11/30/20 19:46 Once 600 mg PO ONETIME ONE Departure - Departure Time of Disposition: 19:48 Disposition: Home, Self-Care 01 Condition: Good Clinical Impression: Right foot pain - Discharge Information Instructions: Foot Sprain Referrals: PCP,None [Primary Care Provider] - Additional Instructions: Your seen and evaluated in the ER today secondary to pain to your right foot without known trauma. This is most likely secondary to mechanical/ musculoskeletal discomfort. I would recommend that you baby it for the next couple days. You will be given a prescription for ibuprofen. You can utilize heat to the area that might help with the pain and discomfort. Please make an appointment see your family doctor next week if your symptoms should persist. The following information is given to patients seen in the emergency department who are being discharged to home. This information is to outline your options for follow-up care. We provide all patients seen in our emergency department with a follow-up referral. The need for follow-up, as well as the timing and circumstances, are variable depending upon the specifics of your emergency department visit. If you don't have a primary care physician on staff, we will provide you with a referral. We always advise you to contact your personal physician following an emergency department visit to inform them of the circumstance of the visit and for follow-up with them and/or the need for any referrals to a consulting specialist. The emergency department will also refer you to a specialist when appropriate. This referral assures that you have the opportunity for follow-up care with a specialist. All of these measure are taken in an effort to provide you with optimal care, which includes your follow-up. Under all circumstances we always encourage you to contact your private lele chongian who remains a resource for coordinating your care. When calling for follow-up care, please make the office aware that this follow-up is from your recent emergency room visit. If for any reason you are refused follow-up, please contact the [facility] Emergency Department at and asked to speak to the emergency department charge nurse. [facility] - Primary Care [address] [place] [id number] [address] Sepsis Event Note (ED) - Focused Exam Vital Signs: Vital Signs Temp Pulse Resp BP Pulse Ox 11/30/20 16:47 97.6 F 79 18 142/81 H 95 - My Orders Last 24 Hours: My Active Orders 11/30/20 19:46 Ibuprofen [Motrin] 600 mg PO ONETIME ONE - Assessment/Plan Last 24 Hours: My Active Orders 11/30/20 19:46 Ibuprofen [Motrin] 600 mg PO ONETIME ONE
--- NOTE | 2020-12-04 14:23 | CR ---
EXAM DATE: 11/30/20 PATIENT'S AGE: 25 Patient: CARTER VELASQUEZ Facility: [facility] : 1995 Study: XRay-Extremity Right FOOT-11/30/2020 11:41:53 AM Ordering Physician: CAMRYN WELCH Final Report: INDICATION: Right foot pain. TECHNIQUE: Three views of the right foot. COMPARISON: None. FINDINGS: No fracture, periosteal reaction, joint space narrowing, erosive change or other abnormality. CONCLUSION: Negative right foot. Dictated by Joce Mon MD @ 12/04/2020 11:50:21 AM Signed by: Joce Mon MD @12/04/2020 11:50:21 AM (Electronic Signature) Report Signed by Proxy. [facility]ENTER[facility]ill
== END 2020-11-30 20:03 | disposition home or self-care (01) ==
LOC: MW.ED 15:27
DX: M79.671 Pain in right foot (principal); Z91.040 Latex allergy status; Z88.8 Allergy status to other drugs, medicaments and biological substances
CPT/HCPCS: 73630-26-RT; 73630-RT; 99283-25